=== PATIENT | female | born 1970 | race Caucasian/White ===

== ENCOUNTER 2017-05-14 07:40 | Day surgery (SDC) | payer OTHER ==
[~2017-05-14] VITALS: Ht 157.5 cm; Wt 49.5 kg
[2017-05-14 08:20] VITALS: Ht 157.5 cm; Wt 49.5 kg
[2017-05-14] MEDS ORDERED: BIRTH CONTROL (08:26)
[2017-05-14] MEDS ORDERED: MULTI PO (08:26)
[2017-05-14 08:44] VITALS: BP 124/75; PULSE 77; RESP 20
[2017-05-14] MEDS ORDERED: FENTAnyl 50 MCG/ML VIAL ONE (09:17)
[2017-05-14] MEDS ORDERED: MIDAZOLAM 1 MG/ML 2 ML INJ ONE ×2 (09:18)
--- NOTE | 2017-05-14 09:18 | OPPN ---
Date/Time of Note Date/Time of Note DATE: 05/14/17 TIME: 09:17 Operative Report Preoperative Diagnosis Screening colonoscopy Postoperative Diagnosis Screening colonoscopy Operation/Procedure Performed Negative all the way into the cecum Provider: MARILU PHELAN MD Estimated blood loss: none Transfusion Required: no Specimen: none Grafts/Implants: none Complications: no MARILU PHELAN MD May 14, 2017 09:18
--- NOTE | 2017-05-14 09:32 | GILP ---
DATE OF PROCEDURE: 05/14/2017 PROCEDURE PERFORMED: Colonoscopy. INDICATIONS FOR PROCEDURE: A 46-year-old female undergoing this procedure for colon cancer screening. Mother had colon cancer at the age of 50. The risks of the procedure, related complications, anesthetic risks, alternatives discussed. Informed consent was obtained. Sedative risks discussed and informed consent was obtained. DESCRIPTION OF PROCEDURE: The patient was brought to the GI lab, sedated with Versed 2.5 mg, fentanyl 50 mg. after optimal sedation, digital examination was done, which was normal. Pediatric colonoscope passed with much ease into rectum, advanced through sigmoid, descending, transverse colon all the way into the cecum. The appendiceal orifice, IC valve identified. While coming out mucosa lateral inspected. Clarity and cleanliness were good. Retroversion was normal. Scope was straightened out and removed with good patient tolerance. IMPRESSION: 1. Normal findings all the way into cecum. 2. Normal retroversion. 3. Normal digital exam. 4. Clarity and cleanliness were good. PLAN: To stay on high-fiber diet. Next colonoscopy after 5 years given the strong family history of colon cancer. Dictated By: Srinivasan Arnett MD /danish/darius /Document#: [id number] CC: Srinivasan Arnett MD;*[facility]*
[2017-05-14 09:41] VITALS: BP 102/66; PULSE 57; RESP 14
== END 2017-05-14 14:04 | disposition home or self-care (01) ==
LOC: GIL 07:40
PROVIDERS: ATTEND Internal Medicine Gastroenterology
DX: Z12.11 Encounter for screening for malignant neoplasm of colon (principal)
CPT/HCPCS: 45378; 84703; J2250; J3010; Z7610